=== PATIENT | female | born 1970 | race Caucasian/White ===

== ENCOUNTER 2016-12-25 20:29 | Emergency (ER) | payer MEDICARE, MEDICAID ==
[~2016-12-25] VITALS: Ht 170.2 cm; Wt 95.5 kg
[~2016-12-25 20:29] MED LIST: AMOXICILLIN 8751 TAB PO; ASPI325T6 PO; ATIVAN2 MG PO; BACTROBAN 22GM22 GM NAS; CEPHALEXIN500 M1 PO; DEPAKOTE ER 50500 MG PO; DEPAKOTE500 M1 PO; DEPAKOTE500 MG PO; DESYREL DIVIDO150 M1 PO; ESTRACE PO; FLEXERIL 1010 MG/TAB PO; INDERAL; INDERAL 10MG10 MG PO; LATUDA40 MG PO; LATUDA60 MG PO; LATUDA80 MG PO; LORTAB 5/500 501 TAB PO; NORCO 325 MG-51 TAB PO; NORCO 325 MG-7.1 TAB PO; PREDNISONE20 MG PO; PROZAC 10MG10 MG PO; PROZAC 20MG20 MG PO; RESPIRADOL; RISPERDAL; RISPERDAL 0.20.25 MG PO; ROXICODONE 55 MG/TAB PO; SEROQUEL; SEROQUEL 1100 MG/TAB PO; SEROQUEL 200MG200 MG PO; ULTRAM 50MG TAB50 MG PO; ULTRAM ER100 MG PO; ZYPREXA10 MG PO
[2016-12-25 20:34] VITALS: BP 133/87; PULSE 84; TEMP 98.1
[2016-12-25] MEDS ORDERED: ESTRACE 1MG1 MG/TAB PO (20:37)
== END 2016-12-25 21:45 | disposition left against medical advice (07) ==
LOC: COL.ER 20:29
DX: Z53.21 Procedure and treatment not carried out due to patient leaving prior to being seen by health care provider (principal)

== ENCOUNTER 2017-01-08 15:05 | Emergency (ER) | payer MEDICARE, MEDICAID ==
[~2017-01-08] VITALS: Ht 170.2 cm; Wt 99.1 kg
[~2017-01-08 15:05] MED LIST changes: +ESTRACE 1MG1 MG/TAB PO
[2017-01-08 15:16] VITALS: BP 134/86; PULSE 109; TEMP 97.1
[2017-01-08 15:46] LABS: PH 7 (5-8); SQUAMOUS EPITHELIAL 0-2 /hpf; URINE APPEARANCE Clear; URINE BACTERIA Rare /hpf; URINE BILIRUBIN Negative (NEGATIVE); URINE BLOOD Negative (NEGATIVE); URINE COLOR Straw; URINE GLUCOSE Negative (NEGATIVE); URINE KETONE Negative (NEGATIVE); URINE RBC 0-2 /hpf; URINE UROBILINOGEN Negative (NEGATIVE); URINE WBC None Seen /hpf
== END 2017-01-08 16:42 | disposition left against medical advice (07) ==
LOC: COL.ER 15:05
PROVIDERS: Emergency Medicine
DX: Z53.21 Procedure and treatment not carried out due to patient leaving prior to being seen by health care provider (principal); R30.0 Dysuria

== ENCOUNTER → 2017-01-25 | Outpatient (CLI) | payer MEDICARE, MEDICAID ==
[~2017-01-25] MED LIST changes: +ZOFRAN 4MG T4 MG/TAB PO
== END ==
LOC: COL.PUL 07:52
DX: R06.02 Shortness of breath (principal); F17.200 Nicotine dependence, unspecified, uncomplicated

== ENCOUNTER 2017-06-23 11:48 | Emergency (ER) | payer MEDICARE, MEDICAID ==
[~2017-06-23] VITALS: Ht 172.7 cm; Wt 97.7 kg
[~2017-06-23 11:48] MED LIST changes: -ZOFRAN 4MG T4 MG/TAB PO
[2017-06-23 11:56] VITALS: BP 129/71; PULSE 80; TEMP 97.1
[2017-06-23 12:58] LABS: BASO % 0.5 % (0.0-2.0); EOS # 0.2 (0.0-0.7); EOS % 2.9 % (0-4.0); GRAN # 3.7 (1.4-6.5); GRAN % 48.6 % (42.2-75.2); HEMATOCRIT 40.6 % (37.0-47.0); HEMOGLOBIN 13.2 g/dl (12.5-16.0); LYMPH # 3.1 (1.2-3.4); LYMPH % 39.8 % (20.0-51.0); MEAN CELL VOLUME 86 fl (80.0-100.0); MEAN CORPUSCULAR HEMOGLOBIN 28 pg (27.0-31.0); MEAN CORPUSCULAR HGB CONC 33 g/dl (33.0-37.0); MEAN PLATELET VOLUME 10.6 fl (7.4-10.4); MONO # 0.6 (0.1-0.6); MONO % 7.9 % (1.7-9.3); PLATELET COUNT 222 K/mm3 (130-400); RED BLOOD COUNT 4.73 M/mm3 (4.10-5.30); WHITE BLOOD COUNT 7.7 K/mm3 (4.8-10.8)
[2017-06-23 13:15] LABS: ADJUSTED CALCIUM 9.2 mg/dL (8.4-10.2); ALANINE AMINOTRANSFERASE 20 U/L (9-52); ALBUMIN 3.6 gm/dL (3.5-5.0); ALKALINE PHOSPHATASE 73 U/L (50-136); ANION GAP 7 mmol/L (7-16); BILIRUBIN,TOTAL 0.4 mg/dL (0.0-1.0); BLOOD UREA NITROGEN 4 mg/dL (7-17); CALCIUM 8.9 mg/dL (8.4-10.2); CARBON DIOXIDE 28 mmol/L (22-30); CHLORIDE 100 mmol/L (98-107); CREATININE, serum 0.65 mg/dL (0.52-1.25); GLUCOSE 89 mg/dL (74-106); LIPASE 102 U/L (23-300); POTASSIUM 3.7 mmol/L (3.4-5.0); SODIUM 135 mmol/L (137-145); TOTAL PROTEIN 6.7 gm/dL (6.4-8.2)
[2017-06-23 13:19] LABS: PH 6 (5-8); SQUAMOUS EPITHELIAL 0-2 /hpf; URINE APPEARANCE Clear; URINE BACTERIA None Seen /hpf; URINE BILIRUBIN Negative (NEGATIVE); URINE BLOOD 1+ (NEGATIVE); URINE COLOR Yellow; URINE GLUCOSE Negative (NEGATIVE); URINE KETONE Negative (NEGATIVE); URINE RBC 0-2 /hpf; URINE UROBILINOGEN Negative (NEGATIVE); URINE WBC 0-2 /hpf
[2017-06-23 13:30] LABS: C-REACTIVE PROTEIN < 0.5 mg/dL (0.0-0.9)
[2017-06-23] MEDS ORDERED: NORCO 325 MG-51 TAB PO (14:07)
[2017-06-23] MEDS ORDERED: ZOFRAN 4MG T4 MG/TAB PO (14:07)
[2017-06-23] MEDS ORDERED: AMOXICILLIN 8751 TAB PO (14:07)
== END 2017-06-23 14:50 | disposition home or self-care (01) ==
LOC: COL.ER 11:48
PROVIDERS: Emergency Medicine
DX: K52.9 Noninfective gastroenteritis and colitis, unspecified (principal)
CPT/HCPCS: J1170; J2405; J7030; Q9967

== ENCOUNTER 2017-09-25 08:25 | Observation (INO) | payer MEDICARE, MEDICAID ==
[~2017-09-25] VITALS: Ht 175.3 cm; Wt 89.3 kg
[~2017-09-25 08:25] MED LIST changes: +ZOFRAN 4MG T4 MG/TAB PO
[2017-09-25 09:22] LABS: BASO % 0.5 % (0.0-2.0); EOS # 0.1 (0.0-0.7); EOS % 1.9 % (0-4.0); GRAN # 3.7 (1.4-6.5); HEMATOCRIT 40.3 % (37.0-47.0); HEMOGLOBIN 12.7 g/dl (12.5-16.0); LYMPH # 2.8 (1.2-3.4); LYMPH % 38.1 % (20.0-51.0); MEAN CELL VOLUME 87 fl (80.0-100.0); MEAN CORPUSCULAR HEMOGLOBIN 28 pg (27.0-31.0); MEAN CORPUSCULAR HGB CONC 32 g/dl (33.0-37.0); MEAN PLATELET VOLUME 10.4 fl (7.4-10.4); MONO # 0.7 (0.1-0.6); MONO % 9.1 % (1.7-9.3); PLATELET COUNT 212 K/mm3 (130-400); RED BLOOD COUNT 4.61 M/mm3 (4.10-5.30); WHITE BLOOD COUNT 7.5 K/mm3 (4.8-10.8)
[2017-09-25 09:26] LABS: ADJUSTED CALCIUM 9.5 mg/dL (8.4-10.2); ALANINE AMINOTRANSFERASE 15 U/L (9-52); ALBUMIN 3.4 gm/dL (3.5-5.0); ALKALINE PHOSPHATASE 89 U/L (50-136); ANION GAP 6 mmol/L (7-16); BILIRUBIN,TOTAL 0.5 mg/dL (0.0-1.0); BLOOD UREA NITROGEN 3 mg/dL (7-17); CARBON DIOXIDE 36 mmol/L (22-30); CHLORIDE 97 mmol/L (98-107); CREATININE, serum 0.68 mg/dL (0.52-1.25); GLUCOSE 88 mg/dL (74-106); POTASSIUM 3.2 mmol/L (3.4-5.0); SODIUM 138 mmol/L (137-145); TOTAL PROTEIN 6.7 gm/dL (6.4-8.2)
[2017-09-25 09:38] LABS: ACETAMINOPHEN < 10 ug/mL (10-30); ALCOHOL(ethanol),MEDICAL < 10 mg/dL; SALICYLATE < 1.0 mg/dL; TROPONIN-I < 0.012 ng/mL (0.000-0.034)
[2017-09-25 10:36] LABS: ARTERIAL BLD GAS O2 SATURATION 95.9 % (92-100); ARTERIAL BLD GAS TCO2 CT 34.5; ARTERIAL BLOOD GAS BASE EXCESS 5.6 (-2-2); ARTERIAL BLOOD GAS HCO3 32.7 meq/L (22-26); ARTERIAL BLOOD GAS PO2 84.5 mmHg (80-100); ARTERIAL BLOOD GAS pH 7.36 (7.35-7.45); OXYHEMOGLOBIN 92.6 %
[2017-09-25 10:37] LABS: ALLEN TEST YES; ALLENS TEST RESULT PASS; ATS? YES
[2017-09-25] MEDS ORDERED: INDERAL 10MG10 MG PO (13:46)
[2017-09-25] MEDS ORDERED: RISPERDAL3 MG PO (13:46)
[2017-09-25] MEDS ORDERED: WELLBUTRIN SR100 M1 PO (13:46)
[2017-09-25] MEDS ORDERED: DESYREL 100MG100 MG PO (13:47)
[2017-09-25] MEDS ORDERED: ATARAX 25MG25 MG/TAB PO (13:47)
[2017-09-25 14:20] VITALS: BP 97/47; PULSE 78; TEMP 97.7
[2017-09-25 16:29] VITALS: BP 102/56; PULSE 81; TEMP 97.9
[2017-09-25 16:41] VITALS: BP 71/25; PULSE 82
[2017-09-25 16:46] VITALS: BP 112/74; PULSE 95
[2017-09-25 16:47] VITALS: BP 147/108; PULSE 106
[2017-09-25 17:20] LABS: MAGNESIUM 1.7 mg/dL (1.6-2.3); PHOSPHOROUS 3.8 mg/dL (2.5-4.5)
[2017-09-25 18:57] LABS: COLLECTION METHOD CLEAN CATCH
[2017-09-25 19:04] LABS: MUCOUS Present /lpf; PH 6 (5-8); URINE APPEARANCE Cloudy; URINE BACTERIA Rare /hpf; URINE BILIRUBIN Negative (NEGATIVE); URINE BLOOD 3+ (NEGATIVE); URINE COLOR Yellow; URINE GLUCOSE Negative (NEGATIVE); URINE KETONE Negative (NEGATIVE); URINE LEUKOCYTE ESTERASE 3+ (NEGATIVE); URINE PROTEIN(semi-quant) Negative (NEGATIVE)
[2017-09-25 19:06] LABS: URINE WBC >50 /hpf
[2017-09-25 19:17] LABS: AMPHETAMINE URINE NEGATIVE; BARBITURATES URINE NEGATIVE; BENZODIAZEPINES URINE NEGATIVE; BUPRENORPHINE URINE NEGATIVE; METHADONE URINE NEGATIVE; OPIATES URINE NEGATIVE; OXYCODONE URINE POSITIVE; PHENCYCLIDINE URINE NEGATIVE; PROPOXYPHENE URINE NEGATIVE; THC CANNABINOIDS URINE NEGATIVE; TRICYCLIC ANTIDEPRESS URINE NEGATIVE
[2017-09-25 21:05] VITALS: BP 102/72; PULSE 72; TEMP 98
[2017-09-26 00:21] LABS: TROPONIN-I 6 HR POST INITIAL < 0.012 ng/mL (0.000-0.034)
[2017-09-26 00:54] VITALS: BP 129/63; PULSE 56; TEMP 98
[2017-09-26 05:20] VITALS: BP 137/87; PULSE 57; TEMP 98.8
[2017-09-26 08:04] VITALS: BP 108/61; PULSE 44; TEMP 97.3
[2017-09-26 09:05] LABS: CALCIUM 8.6 mg/dL (8.4-10.2); CREATININE, serum 0.51 mg/dL (0.52-1.25)
[2017-09-26 09:20] LABS: MEAN CELL VOLUME 87 fl (80.0-100.0); MEAN CORPUSCULAR HGB CONC 32 g/dl (33.0-37.0); MEAN PLATELET VOLUME 10.6 fl (7.4-10.4); PLATELET COUNT 198 K/mm3 (130-400); RED BLOOD COUNT 4.08 M/mm3 (4.10-5.30); WHITE BLOOD COUNT 8.2 K/mm3 (4.8-10.8)
[2017-09-26 09:23] LABS: HEMATOCRIT 35.4 % (37.0-47.0); HEMOGLOBIN 11.4 g/dl (12.5-16.0); MEAN CORPUSCULAR HEMOGLOBIN 28 pg (27.0-31.0)
[2017-09-26 11:17] VITALS: BP 137/79; PULSE 69; TEMP 98.4
[2017-09-26 15:39] VITALS: BP 161/109; PULSE 60; TEMP 98.4
[2017-09-26 18:05] VITALS: BP 131/85; PULSE 53; TEMP 98.7
[2017-09-27 04:00] VITALS: BP 142/76; PULSE 46; TEMP 98.9
[2017-09-27 06:46] LABS: BASO % 0.6 % (0.0-2.0); EOS % 0.4 % (0-4.0); GRAN # 3.6 (1.4-6.5); GRAN % 52.8 % (42.2-75.2); LYMPH # 2.5 (1.2-3.4); MEAN CELL VOLUME 87 fl (80.0-100.0); MEAN CORPUSCULAR HGB CONC 33 g/dl (33.0-37.0); MEAN PLATELET VOLUME 11.4 fl (7.4-10.4); MONO # 0.6 (0.1-0.6); MONO % 8.5 % (1.7-9.3); PLATELET COUNT 152 K/mm3 (130-400); RED BLOOD COUNT 3.66 M/mm3 (4.10-5.30); WHITE BLOOD COUNT 6.8 K/mm3 (4.8-10.8)
[2017-09-27 06:49] LABS: HEMATOCRIT 31.7 % (37.0-47.0); HEMOGLOBIN 10.3 g/dl (12.5-16.0); MEAN CORPUSCULAR HEMOGLOBIN 28 pg (27.0-31.0)
[2017-09-27 07:06] LABS: CALCIUM 8.3 mg/dL (8.4-10.2); CREATININE, serum 0.56 mg/dL (0.52-1.25); MAGNESIUM 1.6 mg/dL (1.6-2.3); POTASSIUM 3.3 mmol/L (3.4-5.0)
[2017-09-27 08:40] VITALS: BP 146/87; PULSE 67; TEMP 97.8
[2017-09-27 11:53] VITALS: BP 141/75; PULSE 70; TEMP 97.9
[2017-09-27 17:16] VITALS: BP 140/70; PULSE 52; TEMP 98.2
[2017-09-27 20:37] VITALS: BP 145/84; PULSE 44; TEMP 98
[2017-09-28 01:01] VITALS: BP 94/68; PULSE 45; TEMP 97.8
[2017-09-28 02:01] VITALS: BP 142/72; PULSE 75
[2017-09-28 03:00] VITALS: BP 144/73; PULSE 54; TEMP 98.2
[2017-09-28 07:10] LABS: BASO # 0.1 (0.0-0.2); BASO % 0.7 % (0.0-2.0); EOS # 0.1 (0.0-0.7); EOS % 1.1 % (0-4.0); GRAN % 53.1 % (42.2-75.2); LYMPH # 2.4 (1.2-3.4); MEAN CELL VOLUME 86 fl (80.0-100.0); MEAN CORPUSCULAR HGB CONC 32 g/dl (33.0-37.0); MONO # 0.9 (0.1-0.6); MONO % 11.9 % (1.7-9.3); PLATELET COUNT 161 K/mm3 (130-400); RED BLOOD COUNT 3.96 M/mm3 (4.10-5.30); WHITE BLOOD COUNT 7.5 K/mm3 (4.8-10.8)
[2017-09-28 07:11] LABS: CALCIUM 8.8 mg/dL (8.4-10.2); CREATININE, serum 0.56 mg/dL (0.52-1.25); MAGNESIUM 1.4 mg/dL (1.6-2.3); POTASSIUM 3.7 mmol/L (3.4-5.0)
[2017-09-28 07:14] LABS: HEMATOCRIT 33.9 % (37.0-47.0); MEAN CORPUSCULAR HEMOGLOBIN 28 pg (27.0-31.0)
[2017-09-28 07:44] VITALS: BP 148/72; PULSE 57; TEMP 98.2
[2017-09-28] MEDS ORDERED: CEPHALEXIN500 M1 PO (10:04)
[2017-09-28] MEDS ORDERED: DEPAKOTE ER 50500 MG PO (10:05)
[2017-09-28] MEDS ORDERED: RISPERDAL4 MG PO (10:06)
[2017-09-28] MEDS ORDERED: PEPCID 20MG TAB20 MG PO (10:07)
== END 2017-09-28 10:40 | disposition home or self-care (01) ==
LOC: COL.ER 08:25 → MEDICAL 11:20
PROVIDERS: Emergency Medicine; Internal Medicine; Physician Assistant
DX: T42.6X1A Poisoning by other antiepileptic and sedative-hypnotic drugs, accidental (unintentional), initial encounter (principal); R41.0 Disorientation, unspecified; F11.10 Opioid abuse, uncomplicated; F31.9 Bipolar disorder, unspecified; N39.0 Urinary tract infection, site not specified; W18.12XA Fall from or off toilet with subsequent striking against object, initial encounter; Y92.002 Bathroom of unspecified non-institutional (private) residence as the place of occurrence of the external cause; I45.81 Long QT syndrome; G47.00 Insomnia, unspecified; F17.210 Nicotine dependence, cigarettes, uncomplicated; R25.1 Tremor, unspecified; R10.84 Generalized abdominal pain; I95.9 Hypotension, unspecified; E87.6 Hypokalemia; R11.2 Nausea with vomiting, unspecified; B96.20 Unspecified Escherichia coli [E. coli] as the cause of diseases classified elsewhere; E83.42 Hypomagnesemia; R00.1 Bradycardia, unspecified
CPT/HCPCS: 90791-AI; 99232-AI; 99233-AI; 99239; G0378; J0696; J1650; J2405; J3480; J7030

== ENCOUNTER 2018-01-26 10:44 | Emergency (ER) | payer MEDICARE, MEDICAID ==
[~2018-01-26] VITALS: Ht 170.2 cm; Wt 94.5 kg
[~2018-01-26 10:44] MED LIST changes: +ATARAX 25MG25 MG/TAB PO; +DESYREL 100MG100 MG PO; +PEPCID 20MG TAB20 MG PO; +RISPERDAL3 MG PO; +RISPERDAL4 MG PO; +WELLBUTRIN SR100 M1 PO
[2018-01-26 10:48] VITALS: BP 159/85; PULSE 98; TEMP 97.7
== END 2018-01-26 11:48 | disposition home or self-care (01) ==
LOC: COL.ER 10:44
DX: S61.211A Laceration without foreign body of left index finger without damage to nail, initial encounter (principal); I10 Essential (primary) hypertension; F17.210 Nicotine dependence, cigarettes, uncomplicated; F31.9 Bipolar disorder, unspecified; W26.0XXA Contact with knife, initial encounter; Y92.009 Unspecified place in unspecified non-institutional (private) residence as the place of occurrence of the external cause

== ENCOUNTER 2018-02-02 08:36 | Emergency (ER) | payer MEDICARE, MEDICAID ==
[~2018-02-02] VITALS: Ht 172.7 cm; Wt 94.5 kg
[2018-02-02 08:41] VITALS: TEMP 97.7
[2018-02-02] MEDS ORDERED: ZYPREXA2.5 MG PO (08:44)
[2018-02-02] MEDS ORDERED: COMMIT MM (08:45)
[2018-02-02] MEDS ORDERED: ZYPREXA 5MG5 MG PO (08:45)
[2018-02-02] MEDS ORDERED: DESYREL 50MG50 MG PO (08:45)
[2018-02-02 09:18] LABS: BASO % 0.6 % (0.0-2.0); EOS # 0.2 (0.0-0.7); EOS % 2.4 % (0-4.0); GRAN # 3.6 (1.4-6.5); GRAN % 53.4 % (42.2-75.2); HEMATOCRIT 40.3 % (37.0-47.0); HEMOGLOBIN 13.3 g/dl (12.5-16.0); LYMPH # 2.3 (1.2-3.4); LYMPH % 34.2 % (20.0-51.0); MEAN CELL VOLUME 85 fl (80.0-100.0); MEAN CORPUSCULAR HEMOGLOBIN 28 pg (27.0-31.0); MEAN CORPUSCULAR HGB CONC 33 g/dl (33.0-37.0); MONO # 0.6 (0.1-0.6); PLATELET COUNT 250 K/mm3 (130-400); RED BLOOD COUNT 4.76 M/mm3 (4.10-5.30); REDCELL DISTRIBUTION WIDTH-CV 12.4 % (11.5-14.5)
[2018-02-02 09:32] LABS: COLLECTION METHOD CLEAN CATCH
[2018-02-02 09:46] LABS: ALANINE AMINOTRANSFERASE 61 U/L (9-52); ALBUMIN 3.7 gm/dL (3.5-5.0); ALKALINE PHOSPHATASE 138 U/L (50-136); ANION GAP 11 mmol/L (7-16); AST,SGOT 60 U/L (15-37); BILIRUBIN,TOTAL 0.3 mg/dL (0.0-1.0); BLOOD UREA NITROGEN 3 mg/dL (7-17); CALCIUM 8.7 mg/dL (8.4-10.2); CARBON DIOXIDE 27 mmol/L (22-30); CHLORIDE 95 mmol/L (98-107); CREATININE, serum 0.56 mg/dL (0.52-1.25); GLUCOSE 103 mg/dL (74-106); POTASSIUM 3.6 mmol/L (3.4-5.0); SODIUM 133 mmol/L (137-145); TOTAL PROTEIN 7.4 gm/dL (6.4-8.2)
[2018-02-02 09:48] LABS: MUCOUS Present /lpf; PH 8 (5-8); SQUAMOUS EPITHELIAL None Seen /hpf; URINE APPEARANCE Clear; URINE BACTERIA Rare /hpf; URINE BILIRUBIN Negative (NEGATIVE); URINE BLOOD Negative (NEGATIVE); URINE COLOR Straw; URINE GLUCOSE Negative (NEGATIVE); URINE KETONE Negative (NEGATIVE); URINE LEUKOCYTE ESTERASE Negative (NEGATIVE); URINE NITRATE Negative (NEGATIVE); URINE PROTEIN(semi-quant) Negative (NEGATIVE); URINE RBC 0-2 /hpf; URINE UROBILINOGEN Negative (NEGATIVE)
[2018-02-02 09:53] LABS: ACETAMINOPHEN < 10 ug/mL (10-30); ALCOHOL(ethanol),MEDICAL < 10 mg/dL; SALICYLATE < 1.0 mg/dL
[2018-02-02 09:57] LABS: TRICYCLIC ANTIDEPRESS URINE NEGATIVE
[2018-02-02 14:38] VITALS: BP 139/85; PULSE 95
== END 2018-02-02 14:39 ==
LOC: COL.ER 08:36
PROVIDERS: Physician Assistant
DX: F41.9 Anxiety disorder, unspecified (principal); F31.9 Bipolar disorder, unspecified

== ENCOUNTER 2019-03-24 16:40 | Emergency (ER) | payer MEDICARE, MEDICAID ==
[~2019-03-24] VITALS: Ht 172.7 cm; Wt 111.8 kg
[~2019-03-24 16:40] MED LIST changes: +COMMIT MM; +DESYREL 50MG50 MG PO; +ZYPREXA 5MG5 MG PO; +ZYPREXA2.5 MG PO
[2019-03-24 16:46] VITALS: TEMP 97.7
[2019-03-24 17:27] LABS: BASO # 0.1 (0.0-0.2); BASO % 0.5 % (0.0-2.0); EOS # 0.3 (0.0-0.7); EOS % 1.7 % (0-4.0); GRAN # 12.3 (1.4-6.5); GRAN % 74.3 % (42.2-75.2); HEMATOCRIT 37.4 % (37.0-47.0); HEMOGLOBIN 12.1 g/dl (12.5-16.0); LYMPH # 2.8 (1.2-3.4); LYMPH % 17.2 % (20.0-51.0); MEAN CELL VOLUME 82 fl (80.0-100.0); MEAN CORPUSCULAR HEMOGLOBIN 26 pg (27.0-31.0); MEAN CORPUSCULAR HGB CONC 32 g/dl (33.0-37.0); MEAN PLATELET VOLUME 10.1 fl (7.4-10.4); MONO # 0.9 (0.1-0.6); MONO % 5.6 % (1.7-9.3); PLATELET COUNT 360 K/mm3 (130-400); RED BLOOD COUNT 4.58 M/mm3 (4.10-5.30); REDCELL DISTRIBUTION WIDTH-CV 13.4 % (11.5-14.5)
[2019-03-24 17:34] LABS: ALBUMIN 4.2 gm/dL (3.5-5.0); BILIRUBIN,TOTAL 0.3 mg/dL (0.0-1.0); CALCIUM 9.8 mg/dL (8.4-10.2); CREATININE, serum 0.74 (0.52-1.25); POTASSIUM 3.3 mmol/L (3.4-5.0); TOTAL PROTEIN 7.8 gm/dL (6.4-8.2)
[2019-03-24 17:46] LABS: TROPONIN-I 0.012 ng/mL (0.000-0.035)
[2019-03-24 18:30] LABS: COLLECTION METHOD CLEAN CATCH
[2019-03-24 18:36] LABS: MUCOUS Present /lpf; PH 6 (5-8); SQUAMOUS EPITHELIAL 0-2 /hpf; URINE APPEARANCE Clear; URINE BACTERIA Rare /hpf; URINE BILIRUBIN Negative (NEGATIVE); URINE BLOOD Negative (NEGATIVE); URINE COLOR Straw; URINE GLUCOSE Negative (NEGATIVE); URINE KETONE Negative (NEGATIVE); URINE LEUKOCYTE ESTERASE Negative (NEGATIVE); URINE NITRATE Negative (NEGATIVE); URINE PROTEIN(semi-quant) Negative (NEGATIVE); URINE RBC 0-2 /hpf; URINE UROBILINOGEN Negative (NEGATIVE)
[2019-03-24 18:57] LABS: C-REACTIVE PROTEIN 1.5 mg/dL (0.0-0.9)
[2019-03-24 19:20] LABS: VALPROIC ACID (DEPAKENE) < 10.0 ug/mL (50.0-100.0)
[2019-03-24 21:20] VITALS: BP 138/71; PULSE 76
== END 2019-03-24 21:20 | disposition home or self-care (01) ==
LOC: COL.ER 16:40
PROVIDERS: Physician Assistant
DX: M54.6 Pain in thoracic spine (principal); D72.829 Elevated white blood cell count, unspecified; R94.31 Abnormal electrocardiogram [ECG] [EKG]; F17.210 Nicotine dependence, cigarettes, uncomplicated; Z90.710 Acquired absence of both cervix and uterus; Z98.890 Other specified postprocedural states; W19.XXXA Unspecified fall, initial encounter
CPT/HCPCS: J1885; J3010; J7030; Q9967

== ENCOUNTER → 2019-04-11 | Outpatient (CLI) | payer MEDICARE, MEDICAID | LOC: COL.RAD 08:44 | DX: J84.89 Other specified interstitial pulmonary diseases (principal); K76.0 Fatty (change of) liver, not elsewhere classified; E27.8 Other specified disorders of adrenal gland; D72.829 Elevated white blood cell count, unspecified | CPT/HCPCS: Q9967 ==

== ENCOUNTER → 2019-04-20 | Outpatient (CLI) | payer MEDICARE, MEDICAID | LOC: COL.RAD 04-18 12:30 | DX: M47.814 Spondylosis without myelopathy or radiculopathy, thoracic region (principal); M51.36 Other intervertebral disc degeneration, lumbar region ==

== ENCOUNTER → 2019-05-16 | Outpatient (CLI) | payer MEDICARE, MEDICAID | LOC: MHCPAIN 07:58 | DX: G89.29 Other chronic pain (principal); M47.817 Spondylosis without myelopathy or radiculopathy, lumbosacral region; M53.3 Sacrococcygeal disorders, not elsewhere classified | CPT/HCPCS: G0463 ==

== ENCOUNTER 2019-07-20 08:00 | Outpatient (RCR) | payer MEDICARE, MEDICAID | END 2019-08-20 | disposition still patient (30) | LOC: MKS.ESL.PT | DX: M47.817 Spondylosis without myelopathy or radiculopathy, lumbosacral region (principal); M53.3 Sacrococcygeal disorders, not elsewhere classified ==

== ENCOUNTER → 2019-08-14 | Outpatient (CLI) | payer MEDICARE, MEDICAID | LOC: MHCPAIN 07:47 | DX: G89.29 Other chronic pain (principal); M47.817 Spondylosis without myelopathy or radiculopathy, lumbosacral region; M53.3 Sacrococcygeal disorders, not elsewhere classified | CPT/HCPCS: G0463 ==

== ENCOUNTER 2020-06-09 09:15 | Outpatient (RCR) | payer MEDICARE, MEDICAID | END 2020-08-14 | disposition home or self-care (01) | LOC: MKS.ESL.PT | DX: M54.6 Pain in thoracic spine (principal); G89.29 Other chronic pain ==

== ENCOUNTER → 2020-09-02 | Outpatient (CLI) | payer MEDICARE, MEDICAID | LOC: ZCOL.LAB 20:17 | DX: B34.9 Viral infection, unspecified (principal); Z20.828 Contact with and (suspected) exposure to other viral communicable diseases ==

== ENCOUNTER 2021-09-16 18:41 | Emergency (ER) | payer MEDICARE, MEDICAID ==
[~2021-09-16] VITALS: Ht 170.2 cm; Wt 118.2 kg
[2021-09-16 18:51] VITALS: TEMP 97.2
[2021-09-16] MEDS ORDERED: HYDROCORTISO28.35 G1 TP (19:07)
[2021-09-16 19:20] VITALS: BP 116/68; PULSE 103
== END 2021-09-16 19:20 | disposition home or self-care (01) ==
LOC: COL.ER 18:41
DX: L20.9 Atopic dermatitis, unspecified (principal); F31.9 Bipolar disorder, unspecified; Z87.891 Personal history of nicotine dependence; Z79.899 Other long term (current) drug therapy

== ENCOUNTER 2021-11-04 08:15 | Outpatient (RCR) | payer MEDICARE, MEDICAID ==
[~2021-11-04 08:15] MED LIST changes: +HYDROCORTISO28.35 G1 TP
== END 2021-11-06 | disposition home or self-care (01) ==
LOC: MKS.ESL.PT
DX: R26.89 Other abnormalities of gait and mobility (principal); M54.50 Low back pain, unspecified; G89.29 Other chronic pain

== ENCOUNTER 2021-11-11 08:10 | Outpatient (RCR) | payer MEDICARE, MEDICAID | END 2021-12-07 | disposition home or self-care (01) | LOC: MKS.ESL.PT | DX: R26.89 Other abnormalities of gait and mobility (principal); M54.50 Low back pain, unspecified; G89.29 Other chronic pain ==

== ENCOUNTER 2022-05-14 09:51 | Emergency (ER) | payer MEDICARE, MEDICAID ==
[~2022-05-14] VITALS: Ht 162.6 cm; Wt 118.2 kg
[2022-05-14 09:59] VITALS: TEMP 99
[2022-05-14] MEDS ORDERED: LAMICTAL 25MG T25 MG PO (10:09)
[2022-05-14] MEDS ORDERED: LIPITOR 10MG10 MG PO (10:09)
[2022-05-14] MEDS ORDERED: INDERAL 20MG20 MG PO (10:09)
[2022-05-14] MEDS ORDERED: PEPCID 20MG TAB20 MG PO (10:10)
[2022-05-14] MEDS ORDERED: GLUCOPHAGE1000 MG PO (10:10)
[2022-05-14] MEDS ORDERED: NEURONTIN600 MG/TAB PO (10:10)
[2022-05-14 11:05] LABS: BASO # 0.1 K/mm3 (0.0-0.2); BASO % 0.4 % (0.0-2.0); EOS # 0.3 K/mm3 (0.0-0.7); EOS % 2.1 % (0.0-4.0); GRAN # 11.7 K/mm3 (1.4-6.5); GRAN % 83.8 % (42.2-75.2); HEMOGLOBIN 11.1 g/dl (12.5-16.0); LYMPH # 1.3 K/mm3 (1.2-3.4); LYMPH % 9.5 % (20.0-51.0); MEAN CELL VOLUME 85 fl (80.0-100.0); MEAN CORPUSCULAR HEMOGLOBIN 26 pg (27-31); MEAN CORPUSCULAR HGB CONC 31 g/dl (33.0-37.0); MEAN PLATELET VOLUME 10.3 fl (7.4-10.4); MONO # 0.5 K/mm3 (0.1-0.6); MONO % 3.7 % (1.7-9.3); PLATELET COUNT 310 K/mm3 (130-400); RED BLOOD COUNT 4.29 M/mm3 (4.10-5.30); REDCELL DISTRIBUTION WIDTH-CV 14.5 % (11.5-14.5)
[2022-05-14 11:12] LABS: ALBUMIN 3.6 gm/dL (3.5-5.0); BILIRUBIN,TOTAL 0.3 mg/dL (0.2-1.2); CALCIUM 9.4 mg/dL (8.4-10.2); CREATININE, serum 1.45 mg/dL (0.57-1.11); POTASSIUM 5.2 mmol/L (3.5-4.5)
[2022-05-14 11:14] LABS: HEMATOCRIT 36.3 % (37.0-47.0)
[2022-05-14 12:18] LABS: COLLECTION METHOD CLEAN CATCH
[2022-05-14 12:30] LABS: AMORPHOUS CRYSTAL Present (NOT PRESENT); PH 7 (5-8); URINE APPEARANCE Cloudy (CLEAR/HAZY); URINE BACTERIA Many /hpf (NONE SEEN); URINE BILIRUBIN Negative (NEGATIVE); URINE BLOOD 1+ (NEGATIVE); URINE COLOR Yellow (YELLOW); URINE GLUCOSE Negative (NEGATIVE); URINE KETONE Negative (NEGATIVE); URINE LEUKOCYTE ESTERASE 3+ (NEGATIVE); URINE NITRATE Negative (NEGATIVE); URINE PROTEIN(semi-quant) Negative (NEGATIVE); URINE UROBILINOGEN Negative (NEGATIVE)
[2022-05-14] MEDS ORDERED: CEFTIN500 MG PO (12:53)
[2022-05-14 13:25] VITALS: BP 140/79; PULSE 69
== END 2022-05-14 13:25 | disposition home or self-care (01) ==
LOC: COL.ER 09:51
PROVIDERS: Physician Assistant
DX: S09.90XA Unspecified injury of head, initial encounter (principal); S37.009A Unspecified injury of unspecified kidney, initial encounter; N39.0 Urinary tract infection, site not specified; S00.03XA Contusion of scalp, initial encounter; S80.212A Abrasion, left knee, initial encounter; S50.311A Abrasion of right elbow, initial encounter; E87.5 Hyperkalemia; R79.89 Other specified abnormal findings of blood chemistry; Z87.891 Personal history of nicotine dependence; W18.30XA Fall on same level, unspecified, initial encounter; Y92.481 Parking lot as the place of occurrence of the external cause
CPT/HCPCS: J0696; J1885; J7030

== ENCOUNTER 2022-06-30 08:45 | Outpatient (RCR) | payer MEDICARE, MEDICAID ==
[~2022-06-30 08:45] MED LIST changes: +CEFTIN500 MG PO; +GLUCOPHAGE1000 MG PO; +INDERAL 20MG20 MG PO; +LAMICTAL 25MG T25 MG PO; +LIPITOR 10MG10 MG PO; +NEURONTIN600 MG/TAB PO
== END 2022-07-07 | disposition home or self-care (01) ==
LOC: MKS.ESL.PT
DX: R26.89 Other abnormalities of gait and mobility (principal); Z91.81 History of falling

== ENCOUNTER → 2022-08-03 | Outpatient (CLI) | payer MEDICARE, MEDICAID | LOC: COL.RAD 10:57 | DX: S09.8XXA Other specified injuries of head, initial encounter (principal); X58.XXXA Exposure to other specified factors, initial encounter | CPT/HCPCS: A9575 ==

== ENCOUNTER 2022-12-20 07:52 | Emergency (ER) | payer MEDICARE, MEDICAID ==
[~2022-12-20] VITALS: Ht 170.2 cm; Wt 109.5 kg
[2022-12-20 07:54] VITALS: TEMP 97.7
[2022-12-20 09:19] VITALS: BP 141/107; PULSE 71
== END 2022-12-20 09:21 | disposition home or self-care (01) ==
LOC: COL.ER 07:52
DX: S82.62XA Displaced fracture of lateral malleolus of left fibula, initial encounter for closed fracture (principal); Z28.310 Unvaccinated for COVID-19; W01.0XXA Fall on same level from slipping, tripping and stumbling without subsequent striking against object, initial encounter; X50.1XXA Overexertion from prolonged static or awkward postures, initial encounter
CPT/HCPCS: L4386

== ENCOUNTER 2024-03-01 16:11 | Emergency (ER) | payer MEDICARE ==
[~2024-03-01] VITALS: Ht 172.7 cm; Wt 107.3 kg
[2024-03-01 16:16] VITALS: TEMP 97.9
[2024-03-01] MEDS ORDERED: methylPREDNISolone Sod Succ 125 MG/2 ML VIAL IV ONE (17:30)
[2024-03-01] MEDS ORDERED: NS 1,000 ML IV ONE (17:30)
[2024-03-01] MEDS ORDERED: Meclizine 25 MG TAB PO ONE (17:30)
[2024-03-01 17:59] LABS: COLLECTION METHOD CATHETER
[2024-03-01 18:02] LABS: BASO # 0.1 K/mm3 (0.0-0.2); BASO % 0.6 % (0.0-2.0); EOS # 0.2 K/mm3 (0.0-0.7); EOS % 1.3 % (0.0-4.0); GRAN # 9.7 K/mm3 (1.4-6.5); GRAN % 76.7 % (42.2-75.2); HEMOGLOBIN 10.4 g/dl (12.5-16.0); LYMPH % 15.6 % (20.0-51.0); MEAN CELL VOLUME 79 fl (80.0-100.0); MEAN CORPUSCULAR HEMOGLOBIN 26 pg (27-31); MEAN CORPUSCULAR HGB CONC 33 g/dl (33.0-37.0); MEAN PLATELET VOLUME 9.3 fl (7.4-10.4); MONO # 0.7 K/mm3 (0.1-0.6); MONO % 5.2 % (1.7-9.3); PLATELET COUNT 424 K/mm3 (130-400); RED BLOOD COUNT 4.01 M/mm3 (4.10-5.30); REDCELL DISTRIBUTION WIDTH-CV 13.9 % (11.5-14.5)
[2024-03-01 18:09] LABS: URINE APPEARANCE CLOUDY (CLEAR/HAZY); URINE BLOOD TRACE (NEGATIVE); URINE COLOR YELLOW (YELLOW); URINE GLUCOSE NEGATIVE (NEGATIVE); URINE KETONE NEGATIVE (NEGATIVE); URINE NITRATE NEGATIVE (NEGATIVE); URINE PROTEIN(semi-quant) NEGATIVE (NEGATIVE); URINE UROBILINOGEN 0.2 E.U/dL (0.2-1.0)
[2024-03-01 18:10] LABS: HEMATOCRIT 31.8 % (37.0-47.0)
[2024-03-01 18:20] LABS: ACETONE,SERUM NEGATIVE
[2024-03-01 18:26] LABS: ALANINE AMINOTRANSFERASE 24 U/L (0-55); ALBUMIN 3.2 g/dL (3.5-5.0); ALKALINE PHOSPHATASE 194 U/L (40-150); ANION GAP 14 mmol/L (7-16); AST,SGOT 17 U/L (5-34); BILIRUBIN,TOTAL 0.2 mg/dL (0.2-1.2); BLOOD UREA NITROGEN 12 mg/dL (10-20); CALCIUM 9.5 mg/dL (8.4-10.2); CHLORIDE 91 mEq/L (98-107); CREATININE, serum 1.23 mg/dL (0.57-1.11); GLUCOSE 97 mg/dL (70-99); POTASSIUM 4.2 mEq/L (3.5-4.5); SODIUM 129 mEq/L (136-145); TOTAL PROTEIN 7.9 g/dl (6.2-8.1)
[2024-03-01 18:39] LABS: TROPONIN-I < 0.010 ng/mL (0.00-0.033)
[2024-03-01] MEDS ORDERED: MACROBID 1100 MG/CAP PO (21:01)
[2024-03-01 21:55] VITALS: BP 118/78; PULSE 105
[2024-03-01] MEDS ORDERED: LORazepam 1 MG TAB PO ONE (22:00)
== END 2024-03-01 21:55 | disposition home or self-care (01) ==
LOC: COL.ER 16:11
PROVIDERS: Emergency Medicine
DX: R42 Dizziness and giddiness (principal); N39.0 Urinary tract infection, site not specified; R74.8 Abnormal levels of other serum enzymes; F31.9 Bipolar disorder, unspecified; Z79.899 Other long term (current) drug therapy
CPT/HCPCS: J1956; J2919; J7030